=== PATIENT | male | born 1980 | race Caucasian/White ===

== ENCOUNTER 2017-02-02 01:44 | Emergency (ER) | payer SELFPAY ==
--- NOTE | ~2017-02-02 | CR72 ---
[facility]. [facility] A Service of [facility] & [facility] RADIOLOGY TEXT RESULTS PATIENT: ARLINE WHALEY LOCATION: SED : 78 UNIT #: [id number] AGE: [address]: Rufino Ferrari MD SEX: M ORDER DR: [id number] [place] [address] [id number] MR#: [id number] Acc #: [id number] NAME: ARLINE WHALEY : 1980 SEX: M STUDY DATE/TIME: 02/02/2017 1:49 UNIT: SED ROOM: STUDY DESCRIPTION: CR Chest Single View Portable Attending Physician: Rufino Ferrari M.D. Ordering Physician: Rufino Ferrari M.D. MEDICAL IMAGING REPORT This report is preliminary unless electronic signature is present. EXAM AP portable chest 02/02/2017 HISTORY 36-year-old male in the ED complaining of 2-day history of intermittent left side chest pain and dizziness. TECHNIQUE AP portable chest x-ray. FINDINGS The examination is negative. Heart size and pulmonary vascularity are normal. The lungs are clear. No visible pulmonary infiltrate or pleural effusion. IMPRESSION Negative chest. Dictated by... Dariusz Jerome M.D. THIS IS AN ELECTRONICALLY VERIFIED REPORT Dariusz Jerome M.D. at 02/02/2017 5:53 AM JACOB/louise TD: 02/02/2017 03:25 JOB #: [id number] MEDICAL IMAGING REPORT Page 1 of 1
--- NOTE | ~2017-02-02 | EKG ---
PATIENT: ARLINE WHALEY UNIT #: [id number] Ventricular Rate: 81 BPM Atrial Rate: 81 BPM P-R Interval: 150 ms QRS Duration: 94 ms Q-T Interval: 358 ms QTC Calculation(Bezet): 415 ms P [place]: 54 degrees Calculated R [place]: 77 degrees Calculated T [place]: 67 degrees Diagnosis Line: Normal sinus rhythm Diagnosis Line: Normal ECG Diagnosis Line: No previous ECGs available Diagnosis Line: Confirmed by HAYDER CHARLES MD ([id number]) on 02/06/2017 Diagnosis Line: 11:56:51 AM INTERPRETING MD: MELVIN BLANK
[~2017-02-02 01:44] MED LIST: NO MEDICATIONS
[2017-02-02 02:14] LABS: BASOPHIL# 0.1 X10e3 (0-0.3); BASOPHIL% 0.7 % (0-2.5); EOSINOPHIL# 0.2 X10e3 (0-0.7); EOSINOPHIL% 2.2 % (0.0-7.0); HEMATOCRIT 49.8 % (38.0-50.0); LYMPHOCYTE# 2.3 X10e3 (1.0-3.5); LYMPHOCYTE% 31.4 % (17.0-45.0); MEAN CELL VOLUME 89.1 FL (83-96); MEAN CORPUSCULAR HEMOGLOBIN 30.4 PG (28-34); MEAN CORPUSCULAR HGB CONC 34.2 g/dL (30-36); MEAN PLATELET VOLUME 7.8 FL (6.5-11.5); MONOCYTE# 0.6 X10e3 (0-1.0); MONOCYTE% 8.5 % (3.0-12.0); NEUTROPHIL# 4.2 X10e3 (1.5-7.1); NEUTROPHIL% 57.2 % (40-75); PLATELET COUNT 195 X10e3 (140-420); RED BLOOD COUNT 5.59 X10e (3.90-5.60); RED CELL DISTRIBUTION WIDTH 13.5 % (11.0-15.5); WHITE BLOOD COUNT 7.4 X10e3 (4.0-10.5)
[2017-02-02 02:20] LABS: DIFF IND NO
[2017-02-02 02:23] LABS: POC - CKMB 1.9 ng/mL (0.0-7.9); POC - TROPONIN <0.05 ng/mL (<=0.05)
[2017-02-02 02:26] LABS: ALBUMIN SERUM 3.9 g/dL (3.5-5.0); BILIRUBIN, DIRECT 0.1 mg/dL (0.0-0.2); BILIRUBIN,INDIRECT 0.3 mg/dL (0.0-0.9); BILIRUBIN,TOTAL 0.4 mg/dL (0.2-2.0); BUN/CREATININE RATIO 15.45; CALCIUM SERUM 8.5 mg/dL (8.4-10.2); CREATININE SERUM 1.1 mg/dL (0.6-1.4); GLOM FILT RATE Estimated 85.3 mL/min (>60); POTASSIUM 3.9 mmol/L (3.5-5.1); PROTEIN TOTAL SERUM 5.9 g/dL (6.0-8.3)
== END 2017-02-02 02:49 | disposition home or self-care (01) ==
LOC: SED 01:44
PROVIDERS: Emergency Medicine
DX: R07.9 Chest pain, unspecified (principal); R42 Dizziness and giddiness; R03.0 Elevated blood-pressure reading, without diagnosis of hypertension; Z88.0 Allergy status to penicillin; Z88.5 Allergy status to narcotic agent
CPT/HCPCS: 36415; 71010; 80048; 80076; 82553; 84484; 85025; 93005; 99284

== ENCOUNTER → 2017-03-25 | Outpatient (CLI) | payer OTHER ==
--- NOTE | ~2017-03-25 | CR181 ---
[facility] A Service of [facility] & [facility] RADIOLOGY TEXT RESULTS PATIENT: ARLINE WHALEY LOCATION: [facility] : [birth year] UNIT #: [id number] AGE: [address]: Aaron Vera MD SEX: M ORDER DR: [id number] [address] [address] [id number] O MR#: [id number] Acc #: [id number] NAME: ARLINE WHALEY : 1980 SEX: M STUDY DATE/TIME: 03/25/2017 12:35 UNIT: [facility] ROOM: STUDY DESCRIPTION: CR Lumbar Spine 2 or 3 Views Attending Physician: Aaron Vera M.D. Referring Physician: Aaron Vera M.D. Ordering Physician: Aaron Vera M.D. Primary Care Physician: Aaron Vera M.D. MEDICAL IMAGING REPORT This report is preliminary unless electronic signature is present. EXAM Lumbar spine series, 03/25/2017 12:35 hours HISTORY 37-year-old man complaining of low back pain with bilateral leg pain since January 2017. No reported injury. COMPARISON None FINDINGS AP and lateral views of the lumbar spine and a cone lateral view of the lumbosacral junction were performed. There are five non-rib bearing lumbar type vertebra which are normally aligned. There is anterior spurring at L3-4, L4-5. There is facet arthropathy bilaterally most prominently at L5-S1. Presence of canal stenosis cannot be excluded. IMPRESSION Normal alignment with normal vertebral body height and disc spaces. Endplate spurring is present at the vertebral bodies. There is facet spurring mostly at L5-S1 bilaterally. Presence of canal stenosis cannot be excluded. Dictated by... Sunni Back M.D. THIS IS AN ELECTRONICALLY VERIFIED REPORT Sunni Back M.D. at 03/25/2017 8:03 PM Velasquez TD: 03/25/2017 14:55 JOB #: [id number] [facility] A Service of [facility] & [facility] RADIOLOGY TEXT RESULTS PATIENT: ARLINE WHALEY [id number] [birth year] UNIT #: [id number] AGE: [address]: Aaron Vera MD SEX: M ORDER DR: MEDICAL IMAGING REPORT Page 1 of 1
== END | disposition home or self-care (01) ==
LOC: SRAD 12:30
DX: M54.5 Low back pain (principal); R20.0 Anesthesia of skin; M46.06 Spinal enthesopathy, lumbar region; M46.07 Spinal enthesopathy, lumbosacral region
CPT/HCPCS: 72100